=== PATIENT | male | born 2000 | race Caucasian/White ===

== ENCOUNTER 2024-05-24 20:18 | Emergency (ER) | payer OTHER, SELFPAY ==
[2024-05-24 20:21] VITALS: BP 138/83; PULSE 99; RESP 20; O2SAT 97
[2024-05-24] MEDS: Sulfameth/Trimeth DS, 2 TABS/BTL 1 TAB PO (21:19)
[2024-05-24 21:35] LABS: Bilirubin Negative (Negative); Blood Negative (Negative); Clarity Clear (Clear); Glucose Negative (Negative); Ketones Negative (Negative); Leukocyte Esterase Negative (Negative); Nitrite Negative (Negative); Urobilinogen 0.2 mg/dL (Up to 0.2)
--- NOTE | 2024-05-24 21:42 | NUR.NOTE ---
Ultrasound requisition faxed to [facility], patient advised to call [facility] scheduling any time after 7am on 05/26/24 to make appointment. Nursing Note:
--- NOTE | 2024-05-24 22:47 | ED.GENADUL_ITS ---
Discharge Plan Disposition Patient Disposition: Home Discharge Details Clinical Impression: Pain in testicle Primary Care Provider: None,None ED Provider: Alesha Navarro Home Meds and New Rx's Prescriptions: New sulfamethoxazole-trimethoprim [Bactrim DS] 800-160 mg tablet 1 tab PO BID 10 Days Qty: 20 0RF Discharge Instructions Instructions: Epididymitis and orchitis Additional Instructions: you have declined any risk for STD, so I am treating you for epididymitis in the absence of risk for STD we will send your urine for std screening please call to schedule your ultrasound first thing in the morning return with new or worsening complaints including fever, worsening pain HPI General Date/Time Provider Initiated Documentation: 05/24/24 20:33 . HPI Narrative: The patient is a 23-year-old male who presents with a report of left testicular pain. He reports that his symptoms started this morning, which he attributes to holding his urine in the middle of the morning. He describes the pain as a dull ache. He is sexually active in a monogamous relationship with his girlfriend of 2 years, who is currently . She has been tested numerous times for STDs, all of which have returned negative results. He adamantly refutes any risk of sexually transmitted disease. He recalls engaging in strenuous activities prior to the onset of symptoms, including an 8-hour snow bike ride and heavy lifting of approximately 300 pounds when the bike fell over. He has no history of similar symptoms in the past. Related Data Home Medications ?Medication ?Instructions ?Recorded ?Confirmed sulfamethoxazole 800 1 tab PO BID 10 days #20 tabs 05/24/24 mg-trimethoprim 160 mg tablet (Bactrim DS) Previous Rx's ?Medication ?Instructions ?Recorded sulfamethoxazole 800 1 tab PO BID 10 days #20 tabs 05/24/24 mg-trimethoprim 160 mg tablet (Bactrim DS) Allergies Allergy/AdvReac Type Severity Reaction Status Date / Time No Known Allergies Allergy Unverified 05/24/24 20:26 General Stated Complaint: Male Reproductive Problem MARGARITA: 4 Exam Narrative Exam Narrative: General Appearance: Patient is alert and oriented, not in acute distress. Vital signs: Vitals were stable. HEENT: Within normal limits. Respiratory: Within normal limits. Gastrointestinal: No abdominal tenderness. Genitourinary: Male: In the posterior scrotal region, there is a palpable mass suspected to be a varicocele or epididymitis. There is no exquisite tenderness and there is a cremasteric reflex. No palpable hernia in the inguinal region. Skin: Warm and dry, no rash. Neurological: Normal. Course Vital Signs Vital signs: Vital Signs Pulse 99 H 05/24/24 20:21 Respiratory Rate 20 05/24/24 20:21 Blood Pressure 138/83 05/24/24 20:21 Pulse Oximetry 97 05/24/24 20:21 Pulse 99 H 05/24/24 20:21 Respiratory Rate 20 05/24/24 20:21 Blood Pressure 138/83 05/24/24 20:21 Blood Pressure Position Sitting 05/24/24 20:21 Pulse Oximetry 97 05/24/24 20:21 Oxygen Delivery Method Room Air 05/24/24 20: Oxygen Flow Rate 0 05/24/24 20:21 Lab/Test Results Lab/Test Results: Laboratory Tests Range/Units 05/24/24 21:05 Urine Color (Yellow) Yellow Urine Clarity (Clear) Clear Urine pH (5-8) 6.0 Ur Specific [place] (1.005-1.025) 1.020 Urine Protein (Neg-Trace) mg/dL Negative Urine Ketones (Negative) mg/dL Negative Urine Blood (Negative) Negative Urine Nitrite (Negative) Negative Urine Bilirubin (Negative) Negative Urine Urobilinogen (Up to 0.2) mg/dL 0.2 Ur Leukocyte Esterase (Negative) Negative Urine Glucose (Negative) mg/dL Negative Medical Decision Making Laboratory Studies Urinalysis does not show evidence of infection. Initial Assessment: 23-year-old male with left testicular pain starting this morning, likely related to holding urine or recent physical activities including snow biking and heavy lifting. No history of similar symptoms. Describes pain as a dull ache. Exam benign, alert, oriented, no abdominal tenderness, no palpable hernia, palpable mass in posterior scrotal region suspected to be varicocele or epididymitis, no exquisite tenderness, cremasteric reflex present. Differential Diagnosis: - Varicocele: Suspected due to palpable mass in posterior scrotal region. Plan: Ultrasound ordered for Sunday. - Epididymitis: Suspected due to palpable mass in posterior scrotal region. Patient prefers treatment for UTI. Plan: Bactrim prescribed, urine STD test to be sent, ultrasound ordered for Sunday. - Testicular Torsion: Very low clinical suspicion. No immediate intervention required. ED Course: - Urinalysis: No evidence of infection. - Patient education: Discussed risk of STDs associated with epididymitis, patient declines risk. - Medication: Bactrim 800 mg/160 mg prescribed, one tablet twice daily for 10 days pending ultrasound. - Supportive care: Encouraged to wear supportive underwear. - Follow-up: Ultrasound ordered for Sunday, urine STD test to be sent. Final Assessment: Patient with left testicular pain, likely due to varicocele or epididymitis. Low suspicion for testicular torsion. Treatment initiated with Bactrim, supportive care advised, and follow-up ultrasound scheduled. Clinical Impression: - Left testicular pain - Suspected varicocele - Suspected epididymitis Disposition: - Discharge: Home in stable condition with stable vitals. - Follow-Up: Ultrasound on Sunday, urine STD test to be sent. MDM Components Evaluation: - Number of Differential Diagnoses or Management Options: Varicocele, Epididymitis, Testicular Torsion - Amount and Complexity of Data Reviewed: Urinalysis, patient history, physical exam - Risk of Complication and Morbidity or Mortality: Low risk given benign exam and low suspicion for testicular torsion. Monitoring and follow-up planned. Quality:SDHI Health Related Social Needs: No Data to Display PFSH All Active Problems (Updated 05/24/24 @ 21:11 by REX Brown) Pain in testicle (Acute) Social History Smoking risk assessment performed?: No PAWSS Have you Been Recently Intoxicated or Drunk Within the Last 30 days?: No Have you Ever Experienced Previous Episodes of Alcohol Withdrawal?: No Have you ever Experienced Withdrawal Seizures?: No Have you ever Experienced Delirium Tremens(DT)s?: No Have you ever undergone Alcohol Rehabilitation Treatment (i.e, inpt ot outpatient treatment programs)?: No Have you ever Experienced Blackouts?: No Have you ever Combined Alcohol with other Downers within the last 90 days?: No Have you ever Combined Alcohol with any other Substance of Abuse during the last 90 days?: No Positive Blood Alcohol level on Presentation? [PCS.BAL]: No Evidence of Increased Autonomic Activity (i.e. HR>120, tremor, sweating, agitation, nausea)?: No Result: 0
[2024-05-26 13:03] LABS: Chlamydia Result Negative (Negative); GC Result Negative (Negative)
== END 2024-05-24 21:29 | disposition home or self-care (01) ==
LOC: ER 21:29
PROVIDERS: Emergency Provider Physician Assistant
DX: N50.812 Left testicular pain (principal); X50.0XXA Overexertion from strenuous movement or load, initial encounter
CPT/HCPCS: 87491; 87591; 99283; 81003

== ENCOUNTER 2024-05-26 10:15 | Emergency (ER) | payer OTHER, SELFPAY ==
[2024-05-26 10:27] VITALS: BP 145/85; PULSE 80; RESP 16; TEMP 36.9
--- NOTE | 2024-05-26 10:49 | ED.GENADUL_ITS ---
Discharge Plan Disposition Patient Disposition: Home Condition: Good Discharge Details Clinical Impression: Pain in testicle, Bilateral hydrocele, Spermatocele Primary Care Provider: None,None ED Provider: Chana Breen Home Meds and New Rx's Prescriptions: No Action sulfamethoxazole-trimethoprim [Bactrim DS] 800-160 mg tablet 1 tab PO BID 10 Days Qty: 20 0RF Discharge Instructions Instructions: Hydrocele/Varicocele (DC) Additional Instructions: As we discussed, your ultrasound showed a hydrocele and spermatocele but the testes look normal. The STD results are still pending, we should have these in few days we will call you with any positive results. Please try to elevate the testes, particular laying flat that should help some of the swelling. Please keep your upcoming appointment with your primary care. While these findings can be very benign, they may recommend continued follow-up to ensure complete resolution. If you develop any fever/chills, increased pain or other new/worsening symptom please seek care urgently once again. In regard to your back pain, try taking Aleve once in the morning and once at night, referral to physical therapy is attached below. Stand Alone Forms: Physical Therapy Referral Discharge Data Discharge Date/Time-TO BE ENTERED AT DEPARTURE: 05/26/24 12:16 HPI General Date/Time Provider Initiated Documentation: 05/26/24 10:20 . Limitations to Documentation: no limitations . Information obtained by: patient, family, RN notes reviewed and old records reviewed . History of Present Illness 23 year old M presents to the emergency department with the chief complaint of presents for scrotal US results , described as mild, Patient started experiencing this day(s) and it has been constant. Immobilization improves symptom(s), (standing upright) Movement worsens symptoms . Patient notes no other symptoms.. Patient did receive the following treatments prior to arrival, none Related Data Home Medications ?Medication ?Instructions ?Recorded ?Confirmed sulfamethoxazole 800 1 tab PO BID 10 days #20 tabs 05/24/24 05/26/24 mg-trimethoprim 160 mg tablet (Bactrim DS) Previous Rx's ?Medication ?Instructions ?Recorded sulfamethoxazole 800 1 tab PO BID 10 days #20 tabs 05/24/24 mg-trimethoprim 160 mg tablet (Bactrim DS) Allergies Allergy/AdvReac Type Severity Reaction Status Date / Time No Known Allergies Allergy Unverified 02/24/25 10:31 General Stated Complaint: GenMedical MARGARITA: 4 Review of Systems Constitutional Constitutional: Reports as per HPI, Denies chills and Denies fever(s) Cardiovascular Cardiovascular: Denies chest pain Respiratory Respiratory: Denies cough Gastrointestinal Gastrointestinal: Denies abdominal pain, Denies change in bowel habits, Denies nausea and Denies vomiting Genitourinary Genitourinary: Reports as per HPI Musculoskeletal Musculoskeletal: Reports as per HPI Integumentary/Breasts Skin/Breast: Reports as per HPI and Denies rash Exam Const General: cooperative, healthy appearing, comfortable, no acute distress, well developed and well groomed Nutritional Appearance: average body habitus and well nourished Orientation: alert and awake Resp Effort & Inspection: normal respiratory effort and no respiratory distress Cardio Rate: regular rate Rhythm: regular rhythm Skin General skin exam: no rashes or lesions noted Trauma: no lacerations or abrasions Neuro General: patient alert and patient awake Cognition: normal cognition Speech: speech normal Gait: normal gait Course Vital Signs Vital signs: Vital Signs Temperature 36.9 C 05/26/24 10:27 Pulse 80 05/26/24 10:27 Respiratory Rate 16 05/26/24 10:27 Blood Pressure 145/85 H 05/26/24 10:27 Temperature 36.9 C 05/26/24 10:27 Temperature Source Oral 05/26/24 10:27 Pulse 80 05/26/24 10:27 Respiratory Rate 16 05/26/24 10:27 Blood Pressure 145/85 H 05/26/24 10:27 Oxygen Delivery Method Room Air 05/26/24 10:27 Oxygen Flow Rate 0 05/26/24 10:27 Medical Decision Making Patient is a pleasant 23-year-old male presenting today with to discuss ultrasound results of his scrotum that were obtained earlier today. I did review the previous emergency note prompting this. Patient was here for testing [place]. He was preemptively started on antibiotics. His urine did not show any evidence to suggest infection. Patient is sexually active in a monogamous relationship. His significant other is currently and therefore has had STD testing recently all of which has been negative. Ultrasound obtained today was reviewed by radiologist and showed normal bilateral testes, small bilateral hydroceles and a 7 mm spermatocele in the right epididymal head. Patient reports that the discomfort began after riding a timber sled although he denies any acute trauma. Patient also reports that he had back pain for a few months, it sounds like this has occurred for him historically as well. Has done well with inversion table. Can occasionally get radiation of pain into the extremities but denies any weakness, sensory changes, change in bowel or bladder habits. No acute trauma to the back, more associated with overuse. Patient I discussed continued treatment at length. His STD panel is still pending. Will call him with any positive results. He has been referred to local primary care and is following up with them in 1 week. We did discuss that this point there is no evidence to suggest epididymitis, orchitis, torsion. The hydrocele, which had not been present for the patient historically, may be associated with his vigorous exercise which often cause some microtrauma to the testes. I did encourage scrotal elevation. I encouraged that he have this reevaluated by his primary care at his upcoming appointment. In regard to his back pain, this does also sound to be acute on chronic and we will refer him physical therapy and have him follow-up with primary care regarding this. His description exam is not consistent with cauda equina or other emergent pathology at this point. Do not see any indication for imaging. Return precautions were discussed. All his questions and concerns were addressed and he is in agreement this plan. This documentation was generated using [employer] dictation system, please disregard any oddities of phrase or misspellings. Quality:SDOH Health Related Social Needs: No Data to Display PFSH All Active Problems (Updated 05/26/24 @ 12:07 by REX Buchanan) Spermatocele (Acute) Bilateral hydrocele (Acute) Pain in testicle (Acute) Social History Smoking/Tobacco Use Status: Current-Occasional Smoking risk assessment performed?: Yes Alcohol Intake: current Substance use type: does not use PAWSS Have you Been Recently Intoxicated or Drunk Within the Last 30 days?: No Have you Ever Experienced Previous Episodes of Alcohol Withdrawal?: No Have you ever Experienced Withdrawal Seizures?: No Have you ever Experienced Delirium Tremens(DT)s?: No Have you ever undergone Alcohol Rehabilitation Treatment (i.e, inpt ot outpatient treatment programs)?: No Have you ever Experienced Blackouts?: No Have you ever Combined Alcohol with other Downers within the last 90 days?: No Have you ever Combined Alcohol with any other Substance of Abuse during the last 90 days?: No Positive Blood Alcohol level on Presentation? [PCS.BAL]: No Evidence of Increased Autonomic Activity (i.e. HR>120, tremor, sweating, agitation, nausea)?: No Result: 0
[2024-05-26 11:13] VITALS: BP 145/85; PULSE 80; RESP 16; TEMP 36.9
== END 2024-05-26 12:16 | disposition home or self-care (01) ==
PROVIDERS: Emergency Provider Physician Assistant
DX: N43.2 Other hydrocele (principal); N43.42 Spermatocele of epididymis, multiple
CPT/HCPCS: 99281; 99283